=== PATIENT | male | born 1965 | race Caucasian/White ===

== ENCOUNTER 2017-03-17 21:39 | Emergency (ER) | payer OTHER ==
[2017-03-17] MEDS ORDERED: Ketorolac Tromethamine 30 MG/ML VIAL ONE (22:03)
[2017-03-17 22:05] LABS: Bilirubin Negative (Negative); Blood, Urine Negative (Negative); Clarity Clear (Clear); Glucose, Urine (Dipstick) Negative (Negative); Leukocyte Negative (Negative); Nitrite Negative (Negative); Protein, Urine (Dipstick) Negative (Neg-Trace); Urobilinogen 0.2 mg/dL (0.2-1.0)
[2017-03-17 22:16] LABS: #Basophils 0.1 thou/uL (0.0-0.2); #Lymphocytes 1.8 thou/uL (1.20-3.40); #Monocytes 0.7 thou/uL (0.11-0.59); #Neutrophils 12.4 thou/uL (1.40-6.50); %Basophils 0.6 % (0.0-1.0); %Eosinophils 0.1 % (0.0-10.0); %Lymphocytes 11.7 % (21.0-51.0); %Neutrophils 82.8 % (42.0-75.0); Hemoglobin 16.1 g/dL (14.0-18.0); Mean Corpuscular HGB CONC 34.5 g/dL (32.0-36.0); Mean Corpuscular Hemoglobin 31.5 pg (27.0-31.0); Mean Corpuscular Volume 91.1 fl (80.0-94.0); Platelet Count 192 thou/uL (130-400); RBC Distribution Width 12.6 % (11.5-14.5); Red Blood Cell (RBC) Count 5.13 mill/uL (4.70-6.10)
[2017-03-17] MEDS ORDERED: Lidocaine 2 gm/D5W 500 ml 500 ML ONE (22:16)
[2017-03-17 22:30] LABS: ALT (SGPT) 39 U/L (8-55); AST (SGOT) 28 U/L (5-34); Albumin 4.5 g/dL (3.5-5.0); Alkaline Phosphatase 81 U/L (40-150); Anion Gap 18 mmol/L (10-20); BUN (Urea Nitrogen) 13 mg/dL (8.4-25.7); Bilirubin, Total 0.6 mg/dL (0.2-1.2); Calc. Creatinine Clearance 0 mL/min (70-130); Calcium 8.9 mg/dL (7.8-10.44); Carbon Dioxide 17 mmol/L (22-29); Chloride 99 mmol/L (98-107); Estimated GFR-MDRD 60; Globulin 3.8 g/dL (2.4-3.5); Glucose 122 mg/dL (70-105); Lipase 9 U/L (8-78); Potassium 3.9 mmol/L (3.5-5.1); Protein, Total 8.3 g/dL (6.0-8.3); Sodium 130 mmol/L (136-145)
--- NOTE | 2017-03-17 23:03 | CT ---
CT ABDOMEN AND PELVIS WITHOUT CONTRAST 03/17/17 HISTORY: Left flank pain for one day. COMPARISON: CT abdomen and pelvis 07/24/13. FINDINGS: Lung bases are clear. No pericardial effusion. There is extensive left periureteral stranding and mi ld left perinephric stranding. There is a calculus measuring 3 mm x 2 mm in the left ureterovesicula r junction. There are punctate right sided renal calculi. No significant right sided hydronephrosis. The noncontrast evaluation of the spleen, pancreas, liver, are unremarkable. No dilated loops of large or small bowel. The appendix is visualized and is normal. IMPRESSION: Obstructive left distal ureteral calculus measuring 3 x 2 mm. There is extensive retroperitoneal flu id. The amount of fluid is greater than what would be for the amount of mild to moderate left hydrou reteronephrosis. Ureteral injury from rupture cannot be excluded. Followup CT urogram may be benefic ial if clinically necessary. Code T POS: SULY
[2017-03-17] MEDS ORDERED: Morphine 10 MG/ML VIAL ONE (23:31)
== END 2017-03-18 02:57 | disposition short-term general hospital (02) ==
LOC: BURERS 21:39
DX: N13.2 Hydronephrosis with renal and ureteral calculous obstruction (principal); N28.89 Other specified disorders of kidney and ureter; E78.5 Hyperlipidemia, unspecified; I10 Essential (primary) hypertension; F41.9 Anxiety disorder, unspecified; F32.9 Major depressive disorder, single episode, unspecified; F43.10 Post-traumatic stress disorder, unspecified; Z79.899 Other long term (current) drug therapy
CPT/HCPCS: 74176; 80053; 81003; 83690; 85025; 87077; 87086; 87186; 96374; 96375; J1885; J2001; J2270